=== PATIENT | male | born 1945 | race Caucasian/White ===

== ENCOUNTER 2022-01-23 06:12 | Observation (INO) ==
--- NOTE | 2021-12-20 09:57 | PAT Medication Instructions ---
Medication Instructions Date of Service December 20, 2021 Home Medications Medication Instructions Recorded celecoxib 200 mg capsule (Celebrex) 200 mg PO BID #60 caps 10/25/21 Wheeled Walker #1 ea 11/30/21 aspirin 81 mg tablet 81 mg PO QAM celecoxib 200 mg capsule (Celebrex) 200 mg PO BID Wheeled Walker #1 ea 11/30/21 [Rx] Zn-pyg htau-zvtehe-tdd palmet capsule 1 cap PO QAM amlodipine 5 mg tablet 5 mg PO QAM ascorbic acid (vitamin C) 500 mg tablet,extended release (Vitamin C ER) 500 mg PO QAM atorvastatin 40 mg tablet 40 mg PO HS coenzyme Q10 100 mg capsule (Co Q-10) 100 mg PO QAM magnesium 100 mg tablet 300 mg PO BID metoprolol succinate 25 mg tablet,extended release 24 hr 25 mg PO QAM multivitamin 1 tab PO BID ASK your surgeon for instructions celecoxib 200 mg capsule (Celebrex) 200 mg PO BID STOP taking 2 weeks before surgery Zn-pyg lryq-gwnaez-ydg palmet capsule 1 cap PO QAM coenzyme Q10 100 mg capsule (Co Q-10) 100 mg PO QAM DO NOT take the morning of surgery ascorbic acid (vitamin C) 500 mg tablet,extended release (Vitamin C ER) 500 mg PO QAM magnesium 100 mg tablet 300 mg PO BID multivitamin 1 tab PO BID Take morning of surgery With a small sip of water, OTHERWISE NOTHING TO EAT OR DRINK AFTER MIDNIGHT: aspirin 81 mg tablet 81 mg PO QAM (unless directed otherwise by surgeon) amlodipine 5 mg tablet 5 mg PO QAM metoprolol succinate 25 mg tablet,extended release 24 hr 25 mg PO QAM Take evening before surgery atorvastatin 40 mg tablet 40 mg PO HS magnesium 100 mg tablet 300 mg PO BID multivitamin 1 tab PO BID Other Notes If you have any questions please call us at [phone] or [phone] or [phone] or [phone]
--- NOTE | 2021-12-27 13:09 | Anesthesiology Consultation ---
Date of Service December 27, 2021 Assessment & Plan (1) Encounter for pre-operative examination: - cardiology pre-op evaluation 12/28/21 [place]: "...preoperative evaluation and for management of his hypertension, hypercholesterolemia, and his coronary artery disease (CABG x4, August 2011, [place]). Since last visit, the patient has done well...to undergo left hip replacement surgery on January 23. He is active on a daily basis caring for his home and property. He does ambulate with the assistance of a cane...is able to walk 1/2 mi and climb 2 flights of stairs without difficulty...denies exertional angina pectoris and limiting dyspnea...stable from a cardiovascular standpoint...excellent control of his blood pressure and cholesterol values...coronary artery disease remains quiescent his current medical regimen...acceptable cardiac risk for hip replacement surgery without further testing..." - CABG x 4. - Outpatient joint assessment: Patient is currently scheduled for inpatient pathway. If re-evaluated pending system levels during current pandemic/surgeon requests outpatient pathway, patient is not recommended candidate for outpatient joint program from anesthesia standpoint. - COVID screening: Per assessment on 12/27/2021: Travel screen-returned from [facility] 12/16/21, no known COVID-19 positive contacts or current COVID-19 related symptoms in past 2 weeks. Pt vaccinated. To surgeon's discretion if preop COVID testing needed. Chart Review Chart Review: Acceptable Risk for Surgery and Patient seen in Pre Admission Testing Teaching & Discussion Pre-Anesthesia Teaching/Discussion Notes: Instructed NPO after midnight before surgery, except medications with 15 cc of water. Medication instructions provided according to the PAT guidelines. History Surgery Operation Date: 01/23/22 08:50 Proposed Procedures p Left Anterior Total Hip Arthroplasty - Lei Marcus DO Height/Weight Height: 5 ft 7 in Weight: 90.6 kg Allergies Allergy/AdvReac Type Severity Reaction Status Date / Time No Known Allergies Allergy Verified 12/20/21 08:48 Medications Home Medications Medication Instructions Recorded Confirmed Last Taken aspirin 81 mg tablet 81 mg PO QAM 12/09/18 12/20/21 Unknown celecoxib 200 mg capsule (Celebrex) 200 mg PO BID #60 caps 10/25/21 12/20/21 Unknown Wheeled Walker #1 ea 11/30/21 Unknown Zn-pyg rmfu-jtwozr-koh palmet 1 cap PO QAM 12/20/21 12/20/21 Unknown capsule ascorbic acid (vitamin C) 500 mg 500 mg PO QAM 12/20/21 12/20/21 Unknown tablet,extended release (Vitamin C ER) coenzyme Q10 100 mg capsule (Co 100 mg PO QAM 12/20/21 12/20/21 Unknown Q-10) magnesium 100 mg tablet 300 mg PO BID 12/20/21 12/20/21 Unknown multivitamin 1 tab PO BID 12/20/21 12/20/21 Unknown amlodipine 5 mg tablet 5 mg PO QAM #90 tabs 12/28/21 12/28/21 Unknown atorvastatin 40 mg tablet 40 mg PO HS #90 tabs 12/28/21 12/28/21 Unknown metoprolol succinate 25 mg 25 mg PO QAM #90 tabs 12/28/21 12/28/21 Unknown tablet,extended release 24 hr Past Medical History Medical History (Updated 12/28/21 @ 10:18 by Adonay Blanca MD) Dyslipidemia History of COVID-19 09/2021, home test, not hosp; "flu symptoms">put on paxlovid, resolved. Hx of coronary artery disease s/p CABG x 4 Hypertension controlled, stable per pt Myocardial Infarction ~10 years ago in [place], s/p CABG x 4 Sleep-disordered breathing snoring and witnessed apneas per , no sleep studies Patient denies h/o stroke, seizures, heart failure, DM, blood clots or blood transfusions. Past Family History Family History Other Coronary heart disease Denies family history of Ovarian cancer Prostate cancer Myocardial infarction Breast cancer Colorectal cancer Past Surgical History Surgical History (Updated 12/29/21 @ 08:28 by Tori Almeida PA-C) History of cardiac cath ~10 years ago, [place]>taken for CABG x4; f/u Dr. Blanca, [place] History of quadruple bypass Hx of colonoscopy Hx of nasal septoplasty S/P wisdom tooth extraction Past Anesthesia History No Hx of Anesthesia Complications and No Family Hx of Anesthesia Complications History of PONV No Hx of PONV and No Hx of Motion Sickness Social History Smoking Status: Never smoker Do You Dip or Chew Tobacco: No Hx Alcohol Use: Yes Alcohol type: wine alcohol intake frequency: 0-2 drinks per day Hx Substance Use: No substance use type: does not use Review of Systems Snoring and witnessed apneas. Denies sleep studies. Patient denies chest pain, shortness of breath, dyspnea on exertion, reflux, fever, chills, cough, wheezing, or palpitations. Physical Exam Vital Signs Vitals BP 114/54 P 57 TEMP 98.2 SP02 96% on RA RESP 17 Physical Full cervical extension range of motion without pain TMD 3.5 finger breadths Mallampati Score 3 Dentition: intact, pt unsure of caps/crowns; denies loose or chipped teeth, implants or bridges Lungs: normal respiratory effort. Clear throughout to auscultation, no adventitious breath sounds Cardiac: regular rate and rhythm, no murmurs noted Carotid arteries: negative bruit bilat Lab Results Anesthesia Preop Results Results Anesthesia Widget: WBC 8.10 K/ul (4.8-10.8) 12/27/21 Hgb 12.8 g/dl (14.0-18.0) L 12/27/21 Hct 37.9 % (40.1-51.0) L 12/27/21 Plt 211 K/uL (130-400) 12/27/21 Na 139 mmol/L (136-145) 12/27/21 K 4.2 mmol/L (3.5-5.1) 12/27/21 Cl 108 mmol/L (98-107) H 12/27/21 CO2 25 mmol/L (21-32) 12/27/21 BUN 23 mg/dl (6-23) 12/27/21 Creat 1.03 mg/dl (0.6-1.4) 12/27/21 Glucose Level 91 mg/dl (70-99(Fasting)) 12/27/21 PT 10.8 Seconds (9.0-12.0) 12/27/21 PTT 26.5 Seconds (21.0-31.0) 12/27/21 INR 1.0 (0.9-1.1) 12/27/21 Blood Type AB Positive 12/27/21 Antibody Screen NEGATIVE 12/27/21 Testing Electrocardiogram Date: 12/27/21 Sinus bradycardia, rate 56 bpm Chest X-Ray Date: 12/27/21 PA and lateral chest radiographs are obtained. No prior studies are available for comparison at the time of dictation. The patient is status post midline sternotomy. The cardiomediastinal silhouette is unremarkable noting atherosclerotic calcification of the thoracic aorta. Nonspecific interstitial thickening is likely chronic. The lungs and pleural spaces are clear. There is no pneumothorax. The skeletal structures are osteopenic. The bony thorax appears intact. IMPRESSION: No active disease in the chest.
--- NOTE | 2022-01-17 09:07 | History & Physical Report ---
Date of Service January 17, 2022 Assessment & Plan (1) Primary osteoarthritis of left hip: We will proceed with a left anterior total of arthroplasty. Postoperatively he will be started on aspirin for DVT prophylaxis and kept overnight for postoperative medical management. He plans to use energy physical therapy upon discharge. History of Present Illness Chief Complaint: Chronic worsening osteoarthritis of the left hip. Primary Care Provider: Alexis Hutson DO Ambrosio is a pleasant 76-year-old male who is been dealing with chronic increasing left hip and groin pain. X-rays and clinical examination have been diagnostic for advanced osteoarthritis of the left hip. After failing conservative treatment, he has elected proceed with a left anterior total of arthroplasty.. Allergies Allergy/AdvReac Type Severity Reaction Status Date / Time No Known Allergies Allergy Verified 12/20/21 08:48 Home Medications Medication Instructions Recorded Confirmed Type Wheeled Walker #1 ea 11/30/21 Rx ascorbic acid (vitamin C) 500 mg 500 mg PO QAM 12/20/21 01/15/22 History tablet,extended release (Vitamin C ER) coenzyme Q10 100 mg capsule (Co 100 mg PO QAM 12/20/21 01/15/22 History Q-10) multivitamin 1 tab PO BID 12/20/21 01/15/22 History amlodipine 5 mg tablet 5 mg PO QAM #90 tabs 12/28/21 01/15/22 Rx atorvastatin 40 mg tablet 40 mg PO HS #90 tabs 12/28/21 01/15/22 Rx metoprolol succinate 25 mg 25 mg PO QAM #90 tabs 12/28/21 01/15/22 Rx tablet,extended release 24 hr celecoxib 200 mg capsule (Celebrex) 200 mg PO BID #60 caps 01/02/22 01/15/22 Rx aspirin 81 mg tablet,delayed 81 mg PO DAILY 01/15/22 01/15/22 History release magnesium 250 mg tablet 250 mg PO DAILY 01/15/22 01/15/22 History saw palmetto 450 mg capsule 450 mg PO QAM 01/15/22 01/15/22 History Past Med/Surg History Medical History Dyslipidemia History of COVID-19 09/2021, home test, not hosp; "flu symptoms">put on paxlovid, resolved. Hx of coronary artery disease s/p CABG x 4 Hypertension controlled, stable per pt Myocardial Infarction ~10 years ago in [place], s/p CABG x 4 Sleep-disordered breathing snoring and witnessed apneas per , no sleep studies Surgical History History of cardiac cath ~10 years ago, [place]>taken for CABG x4; f/u Dr. Blanca, [place] History of quadruple bypass Hx of colonoscopy Hx of nasal septoplasty S/P wisdom tooth extraction Family History Other Coronary heart disease Denies family history of Ovarian cancer Prostate cancer Myocardial infarction Breast cancer Colorectal cancer Social History Smoking Status: Never smoker Second Hand Exposure: No; Hx Alcohol Use: Yes Alcohol type: wine Alcohol Intake Frequency: 4 or More x per/Week Alcohol Intake Frequency Comment: At dinner Hx Substance Use: No Preferred Language: Polish Communication Ability: Effective Visual Impairment: No Limitations Hearing Ability: Normal Tool And Die Maker Required: No Beliefs That Will Affect Care: None marital status: Current Living Situation: Spouse current occupational status: retired Feels Safe at Home: Yes Childhood Exposure to Second-Hand Smoke: No Dental Care, Regularly: Yes Physical Activity Frequency: Daily Seatbelt Use: always Sunscreen Use: Yes Assistive Devices: Glasses Review of Systems All systems reviewed & are unremarkable except as noted in HPI & below. Physical Exam On physical examination of the left hip, he walks with a slight antalgic gait. I can flex him to 80 degrees. He has 20 degrees of external rotation 10 degrees of internal rotation. He has pain at end ranges of motion.. Constitutional WD/WN, vitals as above Eyes PERRL, conjunctivae normal, anicteric sclerae ENMT external ear and nose normal, oropharynx normal Neck trachea midline, no thyromegaly Respiratory normal respiratory effort, lungs clear to auscultation Cardiovascular RRR, no murmur, no edema Gastrointestinal (Abdomen) normal bowel sounds, soft, nontender, no hepatosplenomegaly Skin no rashes, warm and dry Psychiatric A+Ox3, euthymic affect Results & Data Results & Data Laboratory Results . Diagnostic Findings X-rays of the left hip and pelvis show advanced osteoarthritis with joint space narrowing, osteophyte formation, and [id number]-[id number] tubulation. PG Care Time/CCT Total # of Minutes Spent Total Time Spent with Patient: Total time spent is greater than 50% in coordination of care (as documented) at patient's floor/unit and/or counseling patient: Coding Level of Care Code None Diagnoses Primary osteoarthritis of left hip M16.12
[~2022-01-23 06:12] MED LIST: ACETAMINOPHEN 500 MG TAB PO SCH; FAMOTIDINE 20 MG TAB PO SCH; GABAPENTIN 300 MG CAP PO SCH; LR 500ML BOLUS, THEN 15ML/HR IV SCH; LR 60ML/HR IV SCH; ORTHO JOINT MIX INFIL SCH; TRANEXAMIC ACID 1,000 MG **IV Intra-op IV SCH; TRANEXAMIC ACID 1,000 MG **IV Pre-op IV SCH; ceFAZolin 2000MG 2,000 MG/15 ML SYR IV SCH; dexAMETHasone 4 MG TAB PO SCH
[2022-01-23] MEDS ORDERED: BUPIVACAINE 0.5 % 5 MG/1 ML PF 10ML VIAL ONE (06:31)
[2022-01-23] MEDS ORDERED: ONDANSETRON INJ 2 MG/ML 2 ML VIAL IV PRN ×2 (06:33→10:29)
[2022-01-23] MEDS ORDERED: ATROPINE SULFATE 0.1 MG/ML 10ML SYR IV PRN (06:33)
[2022-01-23] MEDS ORDERED: ePHEDrine sulfate 50 MG/ML AMP IV PRN (06:33)
[2022-01-23] MEDS ORDERED: fentaNYL citrate 100 MCG/2 ML VIAL IV PRN (06:33)
[2022-01-23] MEDS ORDERED: MIDAZOLAM HCL 1 MG/ML 2ML VIAL ONE (06:46)
[2022-01-23] MEDS ORDERED: fentaNYL citrate 100 MCG/2 ML VIAL ONE (06:46)
--- NOTE | 2022-01-23 06:49 | History & Physical Bridge Note ---
Date of Service January 23, 2022 History & Physical Bridge Note I have examined the patient, reviewed the History & Physical and in the interval since the performance of the History & Physical I have noted the following changes of clinical significance: no changes noted
[2022-01-23] MEDS ORDERED: ORTHO JOINT ANESTHETIC ONE (07:19)
[2022-01-23] MEDS ORDERED: PROPOFOL IV EMULSION 10 MG/ML 20 ML VIAL IV ONE (08:43)
[2022-01-23] MEDS ORDERED: ePHEDrine sulfate 50 MG/ML SYR ONE (08:43)
[2022-01-23] MEDS ORDERED: ONDANSETRON INJ 2 MG/ML 2 ML VIAL ONE (08:44)
--- NOTE | 2022-01-23 09:10 | Operative Report ---
PG Post Operative Report Pre & Post Diagnosis Operation Date: 01/23/22 08:40 Pre-Op Diagnosis: Left Hip Primary Osteoarthritis Post-Op Diagnosis: Left Hip Primary Osteoarthritis I identified the patient and participated in the time-out.: Yes Procedure Operation Date: 01/23/22 08:40 Actual Procedures p Left Anterior Total Hip Arthroplasty--Uncemented(Left) - Lie Marcus DO Surgeon Lei Marcus DO Corporate Travel Coordinator Lei Triplett PA-C Estimated Blood Loss 200 Findings Consistent with Post-Op Diagnosis Specimens Left femoral head Description of Procedure Implants used I used a ZimmerBiomet total hip arthroplasty system with a size 4 standard offset Avenir Complete stem, a 54 mm G7 cup with a 25mm screw, an E1 polyeth ylene liner, a 40 mm ceramic head with a 0 neck. Ambrosio arrived at the hospital for the above procedure. He was seen in the preoperative holding area and the operative extremity was identified and signed. He was given a spinal anesthetic, a preoperative antibiotic, and TXA. He was then taken back to the operating room and laid on the table in the supine position. He was given basic sedation. The operative leg was secured to a Puristst leg positioner. The hip was then prepped and draped in sterile fashion. A timeout was done and the patient and the operative extremity was properly identified. An anterior approach was used. Dissection was taken down through the fascia and the tensor muscle belly was retracted laterally and the rectus was retracted medially. The circumflex vessels were identified and ligated. The capsule was then incised and tagged for later repair. The femoral neck was then cut and the femoral head was removed. The acetabulum was exposed. Time was spent doing a complete circumferential labral release. Sequential reaming of the acetabulum up to a size 53 reamer was done. Final reamings were done under fluoroscopy to ensure appropriate version. A Biomet 54 mm G7 cup was then impacted into place. A single 25 mm screw was placed. The E1 polyethylene liner was then snapped into place. Surrounding soft tissues were then injected with 100 cc of an orth opedic pain control cocktail. The proximal femur was then exposed. Sequential broaching up to a size 4 broach was done. Off that broach a size 40 head with a 0 neck was trialed. The hip was reduced and fluoroscopic images showed anatomic alignment of the implants in acceptable length. The broach was removed. The final size 4 standard offset Avenir Complete stem was then impacted into place. A ceramic 40 mm head with a 0 neck was then impacted onto the stem and the hip was reduced. Final fluoroscopic images showed anatomic alignment of the hip. The capsule was then closed with #1 Vicryl suture. A dilute betadyne lavage was then done for 3 minutes. The joint was then irrigated with normal saline solution. The fascia was closed with #1 PDS suture. Skin was closed with 2-0 Vicryl, yaquelin, and a Silverlon dressing. He was then transferred to a hospital bed and taken to the post anesthesia care unit in stable condition. He tolerated the procedure well. Lei Triplett PA-C, was present for the entire procedure. He was critical for patient positioning, prepping, draping, retraction exposure, wound closure and application of sterile dressing. I attest to the content of the Intraoperative Record and any orders documented therein. Any exceptions are noted below.
--- NOTE | 2022-01-23 09:54 | Fluoroscopy Report ---
FL hip LT 1V CLINICAL HISTORY: LT ANTERIOR TOTAL COMPARISON STUDY: Left hip radiographs July 26, 2021. FLUOROSCOPY TIME: 11 seconds. FLUOROSCOPIC IMAGES: 2 FINDINGS: Fluoroscopy was provided during total left hip arthroplasty. Acetabular screw is noted. The re are no unexpected radiopaque foreign bodies. No fracture is identified by fluoroscopy. IMPRESSION: Fluoroscopy provided during total left hip arthroplasty. ACT 112: Negative or not required by law. Electronically signed by: Grupo Solares M.D. 01/23/2022 9:53 AM
--- NOTE | 2022-01-23 09:58 | XRay Report ---
SINGLE VIEW PELVIS; SINGLE VIEW LEFT HIP CLINICAL HISTORY: Postoperative examination. FINDINGS: An AP portable view of the hips and pelvis with a crosstable lateral portable view of the l eft hip are obtained. A bipolar left hip arthroplasty is in near-anatomic alignment. A single cortic al lag screw transfixes the acetabular cup. No acute fracture is identified. There are expected posto perative changes overlying the left hip including skin clips, subcutaneous gas, and soft tissue swell ing. Advanced arthritic changes seen in the right hip. IMPRESSION: Expected postoperative findings status post left hip arthroplasty. No acute fracture is s een. ACT 112: Negative or not required by law. Electronically signed by: Grzegorz Rodriguez M.D. 01/23/2022 9:56 AM
[2022-01-23] MEDS ORDERED: METOCLOPRAMIDE HCL INJ 5 MG/ML 2 ML VIAL IV PRN (10:29)
[2022-01-23] MEDS ORDERED: HYDROmorphone INJ 0.5 MG/0.5 ML SYR IV PRN (10:29)
[2022-01-23] MEDS ORDERED: NALOXONE HCL 0.4 MG/1 ML VIAL/CARP IV PRN (10:29)
[2022-01-23] MEDS ORDERED: SODIUM CHLORIDE 0.9% 1000ML 1,000 ML IV SCH (10:29)
[2022-01-23] MEDS ORDERED: MAGNESIUM HYDROXIDE SUSP 30 ML UDC PO PRN (10:29)
[2022-01-23] MEDS ORDERED: bisacodyL 10 MG SUPP PR PRN (10:29)
[2022-01-23] MEDS ORDERED: oxyCODONE HCL IR 5 MG TAB (IMMEDIATE RELEASE) PO PRN (10:29)
[2022-01-23] MEDS: KETOROLAC TROMETHAMINE 15 MG/ML VIAL IV SCH ×3 (10:50→22:23)
--- NOTE | 2022-01-23 12:17 | Anesthesiology Progress Note ---
Date of Service January 23, 2022 Anesthesia Post Procedure Vital Signs Vital Signs: Temp Pulse Pulse Resp BP Pulse Ox O2 Del Method 01/23/22 11:28 36.4 C L 66 16 115/67 98 Nasal Cannula 01/23/22 11:00 36.5 C 62 16 119/75 94 Nasal Cannula 01/23/22 10:30 36.4 C L 63 16 111/68 96 Nasal Cannula 01/23/22 10:00 36.6 C 66 16 104/52 L 97 Oxymask 01/23/22 09:45 70 16 106/55 L 97 Oxymask 01/23/22 09:35 71 16 119/58 L 97 Oxymask 01/23/22 09:27 36.4 C L 74 16 106/58 L 96 Oxymask 01/23/22 06:45 36.9 C 75 18 135/67 96 Room Air O2 Flow Rate 01/23/22 11:28 1 01/23/22 11:00 1 01/23/22 10:30 2 01/23/22 10:00 3 01/23/22 09:45 3 01/23/22 09:35 5 01/23/22 09:27 5 01/23/22 06:45 Pain Intensity Bilateral Hip: Pain Intensity: 8 Transfer of Care Handoff Completed per policy Notes Mental Status: alert / awake / arousable and participated in evaluation Patient Amnestic to Procedure: Yes Nausea / Vomiting: adequately controlled Pain: adequately controlled Airway Patency, RR, SpO2: stable & adequate BP & HR: stable & adequate Hydration State: stable & adequate Neuraxial Anesthesia: was administered and sensory block is resolving Anesthetic Complications: no major complications apparent and Pt Satisfied with anesthetic care
[2022-01-23] MEDS: ACETAMINOPHEN 500 MG TAB PO SCH ×2 (14:52→22:24)
[2022-01-23] MEDS: ceFAZolin 2000MG 2,000 MG/15 ML SYR IV SCH ×2 (14:52→22:25)
[2022-01-23] MEDS: ASPIRIN 81 MG ECTAB PO SCH (20:21)
[2022-01-23] MEDS: DOCUSATE SODIUM 100 MG CAP PO SCH (20:22)
[2022-01-23] MEDS ORDERED: ATORVASTATIN 40 MG TAB PO SCH (21:00)
[2022-01-23] MEDS ORDERED: SENNA 8.6 MG TAB PO SCH (21:00)
[2022-01-24] MEDS: KETOROLAC TROMETHAMINE 15 MG/ML VIAL IV SCH ×2 (05:03→11:05)
[2022-01-24] MEDS: ACETAMINOPHEN 500 MG TAB PO SCH (05:04)
--- NOTE | 2022-01-24 07:01 | Orthopedic Progress Note ---
Date of Service January 24, 2022 Assessment & Plan (1) Status post left hip replacement: Overall he is doing very well. He is not having any pain in the left hip. He will be seen by physical therapy today for ambulation and range of motion exercises. He is on aspirin for DVT prophylaxis. He can be discharged home later today. He will follow-up with orthopedics in 2 weeks. Subjective Ambrosio was seen and examined at bedside this morning. Overall is doing very well. Is not having much pain in the left hip. He has been up to the bedside commode. He has no complaints.. Review of Systems All systems reviewed & are unremarkable except as noted in HPI & below. Physical Exam On physical examination of the left hip, the dressing is clean and dry. His leg lengths are equal. He has active dorsiflexion plantarflexion of his left ankle.. Results & Data Results & Data Laboratory Results . Diagnostic Findings Postoperative x-rays of the left hip show the prosthesis to be in anatomic alignment without any evidence of fracture, desiccation, or loosening. PG Care Time/CCT Total # of Minutes Spent Total Time Spent with Patient: Total time spent is greater than 50% in coordination of care (as documented) at patient's floor/unit and/or counseling patient: Coding Level of Care Code 00750 Post Operative Follow-Up Diagnoses Status post left hip replacement Z96.642
--- NOTE | 2022-01-24 07:02 | Discharge Summary ---
Date of Service January 24, 2022 Admission HPI (Per Admitting) Ambrosio is a pleasant 76-year-old male who is been dealing with chronic increasing left hip and groin pain. X-rays and clinical examination have been diagnostic for advanced osteoarthritis of the left hip. After failing conservative treatment, he has elected proceed with a left anterior total of arthroplasty.. Admission Exam (Per Admitting) On physical examination of the left hip, he walks with a slight antalgic gait. I can flex him to 80 degrees. He has 20 degrees of external rotation 10 degrees of internal rotation. He has pain at end ranges of motion.. Principal Diagnosis Same as "Discharge Diagnosis" noted below under Discharge Instructions. Discharge Exam On physical examination of the left hip, the dressing is clean and dry. His leg lengths are equal. He has active dorsiflexion plantarflexion of his left ankle.. Discharge Data Procedures Performed Operation Date: 01/23/22 08:40 Actual Procedures p Left Anterior Total Hip Arthroplasty--Uncemented(Left) - Lei Marcus DO Ordered Studies 01/23/22 10:20 FL hip LT 1V Routine Hospital Course (1) Status post left hip replacement: On January 23, 2022 Ambrosio arrived at [facility] and underwent a left hip replacement without complication. He had a spinal anesthetic. Postope ratively he was started on aspirin for DVT prophylaxis and transferred to the general orthopedic floors. His hospital course was uneventful. On postop day #1, his vital signs were stable and his pain was well controlled. He was able to participate well with physical therapy doing ambulation and range of motion exercises. He was then discharged home. He will follow-up with orthopedics in 2 weeks. PG Care Time/CCT Total # of Minutes Spent Total Time Spent with Patient: Total time spent is greater than 50% in coordination of care (as documented) at patient's floor/unit and/or counseling patient: Discharge Plan Discharge Items Patient Disposition: Home - Home Health Services Reason For Visit: Degenerative Joint Disease Left Hip Discharge Diagnosis: Left hip replacement Activity: As commented below Non-emergency contact: Surgeon Call non-emergency contact if: your wound has increased redness and your wound has increased drainage Follow-up/Referrals: Alexis Hutson DO [Primary Care Provider] - Diet: Regular Addtl Attending Provider Instructions: Activity and Therapy Recommendations: * If you are using [facility] then therapy will be provided at your home until they feel you have accomplished all of your goals. * If you are using [facility] then Physical Therapy will be provided until they feel you are ready to start Outpatient Physical Therapy. * If you are not using home therapy then Outpatient Physical Therapy should start about 3-5 days from your day of surgery. Therapy will last about 6-10 weeks * You were shown a series of exercises in the hospital. Do these exercises three times each day including the exercises you were shown in physical therapy. * Get up and walk several times each day.~ For the first four weeks, try not to stand or walk for more than one hour at a time. If you do stand or walk for more than one hour, you will not hurt anything, but your leg will likely swell.~~ * As you feel comfortable, you may change from the walker or crutches to a cane and~then to independent walking. Medications: * Narcotic You will likely be sent home from the hospital with a prescription for the narcotic pain medication that worked best throughout your stay. * Aspirin Most patients will be required to take Aspirin 81mg twice a day for 6 weeks after surgery. This is obtained [id number] and a prescription is not necessary. * Other medications may be prescribed for specific circumstances. If you have any questions, please call the office at . * Resume previous home medications unless otherwise instructed TEDs/Elastic Stockings: The white elastic stockings help limit swelling and prevent blood clots from forming in your legs. The more you wear them, the more they work. Wear them for six weeks. Dressing Care: Leave the Silverlon dressing in place for 7 days. After 7 days you may remove the dressing. If the incision is not draining then you may leave the yaquelin open to air. If there is a little bit of drainage or if the yaquelin are getting stuck on your clothing then cover the incision with a dry dressing. The yaquelin will be removed at your 2 week follow-up appointment. Showering: You may shower with the Silverlon dressing in place. Do not let the shower spray hit the dressing directly. Pat the Silverlon dressing dry. If the dressing becomes wet underneath, then simply remove the dressing. Keep the incision dry until you are 7 days out from the day of surgery. After 7 days you may remove the Silverlon dressing and shower with the yaquelin exposed. Let soapy water run over the yaquelin and pat them dry. Do not scrub or soak the incision. Things To Watch For: * Drainage from the incision site that occurs more than one week after your surgery. * Increased redness at the incision site. * Fever above 102 degrees Fahrenheit. * Unusual chest pain or shortness of breath. * Call [facility] at with any of the above problems Follow-Up Visit: Follow-up with Dr. Marcus's PA (Lei Triplett) 2-3 weeks after your day of surgery. He will remove your yaquelin and answer any questions. If you have any additional questions or concerns, Dr Marcus is usually in the office at the same time and will be available An appointment was probably scheduled when you signed-up for surgery in the office. If you have any questions call Office Instructions: More detailed instructions as well as Frequently Asked Questions were provided in a folder by our office when you signed-up for surgery. Please review these instructions when you get home. If you have any further questions or concerns, please feel free to call the office at [phone] Pending Studies at Discharge: No Stand-Alone Forms: My [facility] Medications and DC Order Prescriptions: New oxycodone-acetaminophen 5-325 mg tablet 1 tab PO Q6H PRN (Reason: pain) Qty: 30 0RF Continued (DME) Wheeled Walker Misc See Rx Instructions .MEDSUPPLY Qty: 1 0RF Rx Instructions: As directed amlodipine 5 mg tablet 5 mg PO QAM Qty: 90 3RF atorvastatin 40 mg tablet 40 mg PO HS Qty: 90 3RF metoprolol succinate 25 mg tablet extended release 24 hr 25 mg PO QAM Qty: 90 3RF magnesium 250 mg Tablet 250 mg PO DAILY multivitamin Tablet 1 tab PO BID ascorbic acid (vitamin C) [Vitamin C] 500 mg Tablet Extended Release 500 mg PO QAM Changed aspirin 81 mg Tablet,Delayed Release (Dr/Ec) 81 mg PO BID 42 Days Qty: 0 0RF Discharge Orders: Discharge Order (Routine); Ordered 01/24/22 Ordered By: Lei Marcus Admission Data Admit Date/Time: 01/23/22 09:26 Attending Provider: Lei Marcus Admit Provider: Lei Marcus Primary Care Provider: Alexis Hutson
[2022-01-24] MEDS ORDERED: dexAMETHasone 4 MG TAB PO SCH (08:00)
[2022-01-24] MEDS: ASPIRIN 81 MG ECTAB PO SCH (08:47)
[2022-01-24] MEDS: DOCUSATE SODIUM 100 MG CAP PO SCH (08:47)
[2022-01-24] MEDS ORDERED: METOPROLOL SUCC 25MG EXT REL TAB PO SCH (09:00)
[2022-01-24] MEDS ORDERED: amLODIPine BESYLATE 5 MG TAB PO SCH (09:00)
[2022-01-24] MEDS ORDERED: MAGNESIUM OXIDE 400 MG TAB PO SCH (09:00)
[2022-01-24] MEDS ORDERED: MULTIVITAMIN TAB PO SCH (09:00)
== END 2022-01-24 12:30 | disposition home health service (06) ==
LOC: 3W 06:12 → ASU 06:12
DX: M87.852 Other osteonecrosis, left femur; Z79.899 Other long term (current) drug therapy; Z95.1 Presence of aortocoronary bypass graft; M16.12 Unilateral primary osteoarthritis, left hip; I25.2 Old myocardial infarction; Z86.16 Personal history of COVID-19; M65.9 Synovitis and tenosynovitis, unspecified; Z79.82 Long term (current) use of aspirin

== ENCOUNTER 2022-06-05 10:12 | Observation (INO) ==
--- NOTE | 2022-05-30 11:37 | Anesthesiology Consultation ---
Date of Service May 30, 2022 Assessment & Plan (1) Encounter for pre-operative examination: Plan -cardiology pre-op evaluation 12/28/21 [place]: "...preoperative evaluation and for management of his hypertension, hypercholesterolemia, and his coronary artery di sease (CABG x4, August 2011, [place]). Since last visit, the patient has done well...to undergo left hip replacement surgery on January 23. He is active on a daily basis caring for his home and property. He does ambulate with the assistance of a cane...is able to walk 1/2 mi and climb 2 flights of stairs without difficulty...denies exertional angina pectoris and limiting dyspnea...stable from a cardiovascular standpoint...excellent control of his blood pressure and cholesterol values...coronary artery disease remains quiescent his current medical regimen...acceptable cardiac risk for hip replacement surgery without further testing..." - COVID screening: Per safety instruction police officer on 05/30/2022: Travel screen negative, no known COVID-19 positive contacts or current COVID-19 related symptoms in past 2 weeks. To surgeon's discretion if preop COVID testing is needed. Chart Review Chart Review: Acceptable Risk for Surgery and Patient NOT seen in Pre Admission Testing History Surgery Operation Date: 06/05/22 09:20 Proposed Procedures p Right Anterior Total Hip Arthroplasty - Lei Marcus DO Height/Weight Height: 5 ft 6 in Weight: 90.265 kg Allergies Allergy/AdvReac Type Severity Reaction Status Date / Time No Known Allergies Allergy Verified 05/30/22 10:45 Medications Home Medications Medication Instructions Recorded Confirmed Last Taken Wheeled Walker #1 ea 11/30/21 01/23/22 Unknown ascorbic acid (vitamin C) 500 mg 500 mg PO QAM 12/20/21 05/30/22 01/21/22 tablet,extended release (Vitamin C ER) multivitamin 1 tab PO BID 12/20/21 05/30/22 01/23/22 05:45 amlodipine 5 mg tablet 5 mg PO QAM #90 tabs 12/28/21 05/30/22 01/22/22 05:45 atorvastatin 40 mg tablet 40 mg PO HS #90 tabs 12/28/21 05/30/22 01/22/22 22:00 metoprolol succinate 25 mg 25 mg PO QAM #90 tabs 12/28/21 05/30/22 01/23/22 05:45 tablet,extended release 24 hr magnesium 250 mg tablet 250 mg PO QAM 01/15/22 05/30/22 01/23/22 05:45 aspirin 81 mg tablet,delayed 81 mg PO BID 42 days #0 tabs 01/24/22 05/30/22 01/23/22 05:45 release oxycodone-acetaminophen 5 mg-325 1 tab PO Q6H PRN pain #30 tabs 01/24/22 05/30/22 Unknown mg tablet amoxicillin 500 mg tablet 2,000 mg PO ONCE PRN prophylaxis 03/08/22 05/30/22 Unknown #4 tabs Past Medical History Medical History Dyslipidemia History of COVID-19 09/2021, home test, not hosp; "flu symptoms">put on paxlovid, resolved. Hx of coronary artery disease s/p CABG x 4 Hypertension controlled, stable per pt Myocardial Infarction ~10 years ago in [place], s/p CABG x 4 Sleep-disordered breathing snoring and witnessed apneas per , no sleep studies Past Family History Family History Other Coronary heart disease Denies family history of Ovarian cancer Prostate cancer Myocardial infarction Breast cancer Colorectal cancer Past Surgical History Surgical History (Updated 05/30/22 @ 11:36 by Tori Almeida PA-C) History of cardiac cath ~10 years ago, [place]>taken for CABG x4; f/u [facility] History of quadruple bypass Hx of colonoscopy Hx of nasal septoplasty S/P triple vessel bypass ~2008, [place],; f/u [facility] S/P wisdom tooth extraction Status post left hip replacement (~01/2022) 01/2022 Dr Marcus SAB L4-L5 2 attempts. Social History Smoking Status: Never smoker Do You Dip or Chew Tobacco: No Hx Alcohol Use: Yes Alcohol type: wine alcohol intake frequency: 0-2 drinks per day Hx Substance Use: No substance use type: does not use Lab Results Anesthesia Preop Results Results Anesthesia Widget: WBC 6.97 K/ul (4.8-10.8) 05/10/22 Hgb 12.6 g/dl (14.0-18.0) L 05/10/22 Hct 36.5 % (40.1-51.0) L 05/10/22 Plt 288 K/uL (130-400) 05/10/22 Na 141 mmol/L (136-145) 05/10/22 K 4.2 mmol/L (3.5-5.1) 05/10/22 Cl 108 mmol/L (98-107) H 05/10/22 CO2 27 mmol/L (21-32) 05/10/22 BUN 23 mg/dl (6-23) 05/10/22 Creat 1.12 mg/dl (0.6-1.4) 05/10/22 Glucose Level 92 mg/dl (70-99(Fasting)) 05/10/22 PT 10.9 Seconds (9.0-12.0) 05/10/22 PTT 27.5 Seconds (21.0-31.0) 05/10/22 INR 1.0 (0.9-1.1) 05/10/22 Blood Type AB Positive 05/10/22 Antibody Screen NEGATIVE 05/10/22 Testing Electrocardiogram Date: 01/15/22 NSR, rate 64 bpm Chest X-Ray Date: 12/27/21 No prior studies are available for comparison at the time of dictation. The patient is status post midline sternotomy. The cardiomediastinal silhouette is unremarkable noting atherosclerotic calcification of the thoracic aorta. Nonspecific interstitial thickening is likely chronic. The lungs and pleural spaces are clear. There is no pneumothorax. The skeletal structures are osteopenic. The bony thorax appears intact. IMPRESSION: No active disease in the chest.
--- NOTE | 2022-06-05 06:33 | History & Physical Report ---
Date of Service June 05, 2022 Assessment & Plan (1) Osteoarthritis of right hip: We will proceed with a right anterior total of arthroplasty. Postoperatively he will be started on aspirin for DVT prophylaxis and kept overnight in the hospital for postoperative medical management. [facility] plans [facility] upon discharge. History of Present Illness Chief Complaint: Osteoarthritis of the right hip. Primary Care Provider: Alexis Hutson DO Ambrosio is a pleasant 77-year-old male who I did a left hip replacement on in January 2022. He is done very well with that. Unfortunately he has been dealing with increasing right hip pain. X-rays and clinical examination have been diagnostic for advanced osteoarthritis of the right hip. After failing conservative treatment, he has elected to proceed with a right total hip arthroplasty.. Allergies Allergy/AdvReac Type Severity Reaction Status Date / Time No Known Allergies Allergy Verified 05/30/22 10:45 Home Medications Medication Instructions Recorded Confirmed Type Wheeled Walker #1 ea 11/30/21 01/23/22 Rx ascorbic acid (vitamin C) 500 mg 500 mg PO QAM 12/20/21 05/30/22 History tablet,extended release (Vitamin C ER) multivitamin 1 tab PO BID 12/20/21 05/30/22 History amlodipine 5 mg tablet 5 mg PO QAM #90 tabs 12/28/21 05/30/22 Rx atorvastatin 40 mg tablet 40 mg PO HS #90 tabs 12/28/21 05/30/22 Rx metoprolol succinate 25 mg 25 mg PO QAM #90 tabs 12/28/21 05/30/22 Rx tablet,extended release 24 hr magnesium 250 mg tablet 250 mg PO QAM 01/15/22 05/30/22 History aspirin 81 mg tablet,delayed 81 mg PO BID 42 days #0 tabs 01/24/22 05/30/22 Rx release oxycodone-acetaminophen 5 mg-325 1 tab PO Q6H PRN pain #30 tabs 01/24/22 05/30/22 Rx mg tablet amoxicillin 500 mg tablet 2,000 mg PO ONCE PRN prophylaxis 03/08/22 05/30/22 Rx #4 tabs Past Med/Surg History Medical History Dyslipidemia History of COVID-19 09/2021, home test, not hosp; "flu symptoms">put on paxlovid, resolved. Hx of coronary artery disease s/p CABG x 4 Hypertension controlled, stable per pt Myocardial Infarction ~10 years ago in [place], s/p CABG x 4 Sleep-disordered breathing snoring and witnessed apneas per , no sleep studies Surgical History History of cardiac cath ~10 years ago, [place]>taken for CABG x4; f/u [facility] History of quadruple bypass Hx of colonoscopy Hx of nasal septoplasty S/P triple vessel bypass ~2008, [place],; f/u [facility] S/P wisdom tooth extraction Status post left hip replacement (~01/2022) 01/2022 Dr Marcus SAB L4-L5 2 attempts. Family History Other Coronary heart disease Denies family history of Ovarian cancer Prostate cancer Myocardial infarction Breast cancer Colorectal cancer Social History Smoking Status: Never smoker Second Hand Exposure: No; Hx Alcohol Use: Yes Alcohol type: wine Alcohol Intake Frequency: 4 or More x per/Week Alcohol Intake Frequency Comment: At dinner Hx Substance Use: No Preferred Language: Czech Communication Ability: Effective Visual Impairment: No Limitations Hearing Ability: Normal Tool Checker Required: No Beliefs That Will Affect Care: None marital status: rigo Current Living Situation: Spouse current occupational status: retired How many Children do You have: 1 Feels Safe at Home: Yes Childhood Exposure to Second-Hand Smoke: No Dental Care, Regularly: Yes Physical Activity Frequency: Daily Seatbelt Use: always Sunscreen Use: Yes Assistive Devices: Cane, Glasses and Walker Review of Systems All systems reviewed & are unremarkable except as noted in HPI & below. Physical Exam On physical examination of the right hip, he has decreased range of motion. He has pain with forced internal and external rotation. All of his pain is in his groin.. Constitutional WD/WN, vitals as above Eyes PERRL, conjunctivae normal, anicteric sclerae ENMT external ear and nose normal, oropharynx normal Neck trachea midline, no thyromegaly Respiratory normal respiratory effort, lungs clear to auscultation Cardiovascular RRR, no murmur, no edema Gastrointestinal (Abdomen) normal bowel sounds, soft, nontender, no hepatosplenomegaly Skin no rashes, warm and dry Psychiatric A+Ox3, euthymic affect Results & Data Results & Data Laboratory Results . Diagnostic Findings X-rays of the right hip and pelvis show advanced osteoarthritis with joint space narrowing, osteophyte formation, and [id number] articulation. PG Care Time/CCT Total # of Minutes Spent Total Time Spent with Patient: Total time spent is greater than 50% in coordination of care (as documented) at patient's floor/unit and/or counseling patient: Coding Level of Care Code None Diagnoses Osteoarthritis of right hip M16.11
[~2022-06-05 10:12] MED LIST changes: +LR 15ML/HR IV SCH; -LR 500ML BOLUS, THEN 15ML/HR IV SCH; +ROPIVACAINE 0.5% 5 MG/ML 30 ML VIAL ONE
[2022-06-05] MEDS ORDERED: PROPOFOL IV EMULSION 10 MG/ML 20 ML VIAL IV ONE (11:22)
[2022-06-05] MEDS ORDERED: LIDOCAINE 2% MPF LOCAL 5 ML VIAL INFIL ONE (11:22)
[2022-06-05] MEDS ORDERED: MIDAZOLAM HCL 1 MG/ML 2ML VIAL ONE (11:22)
[2022-06-05] MEDS ORDERED: ONDANSETRON INJ 2 MG/ML 2 ML VIAL ONE (11:22)
[2022-06-05] MEDS ORDERED: ORTHO JOINT ANESTHETIC ONE (12:12)
[2022-06-05] MEDS ORDERED: ATROPINE SULFATE 0.1 MG/ML 10ML SYR IV PRN (12:42)
[2022-06-05] MEDS ORDERED: HYDROmorphone INJ 1 MG/ML SYRINGE IV PRN (12:42)
[2022-06-05] MEDS ORDERED: ONDANSETRON INJ 2 MG/ML 2 ML VIAL IV PRN ×2 (12:42→15:27)
[2022-06-05] MEDS ORDERED: ePHEDrine sulfate 50 MG/ML AMP IV PRN (12:42)
[2022-06-05] MEDS ORDERED: KETOROLAC TROMETHAMINE 15 MG/ML VIAL IV PRN (12:44)
[2022-06-05] MEDS ORDERED: PHENYLEPHRINE 100MCG/ML 5ML SYR ONE ×2 (13:22→14:11)
[2022-06-05] MEDS ORDERED: ePHEDrine sulfate 50 MG/ML AMP ONE (13:22)
[2022-06-05] MEDS ORDERED: SODIUM CHLORIDE 0.9% INJ 10 ML VIAL ONE (13:23)
[2022-06-05] MEDS ORDERED: PHENYLEPHRINE HCL 10 MG/ML VIAL ONE (14:11)
--- NOTE | 2022-06-05 14:19 | Operative Report ---
PG Post Operative Report Pre & Post Diagnosis Operation Date: 06/05/22 12:50 Pre-Op Diagnosis: Degenerative Joint Disease Right Hip Post-Op Diagnosis: Degenerative Joint Disease Right Hip I identified the patient and participated in the time-out.: Yes Procedure Operation Date: 06/05/22 12:50 Actual Procedures p Right Anterior Total Hip Arthroplasty(Right) - Lei Marcus DO Surgeon Lei Marcus DO Side Piece Coverer Lei Triplett PA-C Estimated Blood Loss 200 Findings Consistent with Post-Op Diagnosis Specimens Right femoral head Description of Procedure Implants used I used a [employer]immer[employer]omet total hip arthroplasty system with a size 4 standard offset Avenir Complete stem, a 54 mm G7 cup with a 25mm screw, an E1 polyet hylene liner, a 40 mm ceramic head with a +3.5 neck. Ambrosio arrived at the hospital for the above procedure. He was seen in the preoperative holding area and the operative extremity was identified and signed. He was given a spinal anesthetic, a preoperative antibiotic, and TXA. He was then taken back to the operating room and laid on the table in the supine position. He was given basic sedation. The operative leg was secured to a Puristst leg positioner. The hip was then prepped and draped in sterile fashion. A timeout was done and the patient and the operative extremity was properly identified. An anterior approach was used. Dissection was taken down through the fascia and the tensor muscle belly was retracted laterally and the rectus was retracted medially. The circumflex vessels were identified and ligated. The capsule was then incised and tagged for later repair. The femoral neck was then cut and the femoral head was removed. The acetabulum was exposed. Time was spent doing a complete circumferential labral release. Sequential reaming of the acetabulum up to a size 53 reamer was done. Final reamings were done under fluoroscopy to ensure appropriate version. A Biomet 54 mm G7 cup was then impacted into place. A single 25 mm screw was placed. The E1 polyethylene liner was then snapped into place. Surrounding soft tissues were then injected with 100 cc of an orthopedic pain control cocktail. The proximal femur was then exposed. Sequential broaching up to a size 4 broach was done. Off that broach a size 40 head with a +3.5 neck was trialed. The hip was reduced and fluoroscopic images showed anatomic alignment of the implants in acceptable length. The broach was removed. The final size 4 standard offset Avenir Complete stem was then impacted into place. A ceramic 40 head with a +3.5 neck was then impacted onto the stem and the hip was reduced. Final fluoroscopic images showed anatomic alignment of the hip. The capsule was then closed with #1 Vicryl suture. A dilute betadyne lavage was then done for 3 minutes. The joint was then irrigated with normal saline solution. The fascia was closed with #1 PDS suture. Skin was closed with 2-0 Vicryl, yaquelin, and a Silverlon dressing. He was then transferred to a hospital bed and taken to the post anesthesia care unit in stable condition. He tolerated the procedure well. Lei Triplett PA-C, was present for the entire procedure. He was critical for patient positioning, prepping, draping, retraction exposure, wound closure and application of sterile dressing. I attest to the content of the Intraoperative Record and any orders documented therein. Any exceptions are noted below.
--- NOTE | 2022-06-05 14:26 | Fluoroscopy Report ---
FL hip RT 1V CLINICAL HISTORY: Right anterior total hip arthroplasty TECHNIQUE: 1 views were obtained with the C-arm in the OR with the above procedure. Total fluoroscopy time was 11.4 seconds. Radiation dose was 1.97 mGy. Comparison: Comparison is made to hip radiographs 03/08/2022 FINDINGS/IMPRESSION: Intraoperative images were obtained of right hip arthroplasty Please correlate with intraoperative fluoroscopy and operative report. ACT 112: Negative or not required by law. Electronically signed by: Ney Gresham M.D. 06/05/2022 2:24 PM
--- NOTE | 2022-06-05 15:17 | Anesthesiology Progress Note ---
Date of Service June 05, 2022 Anesthesia Post Procedure Vital Signs Vital Signs: Temp Pulse Resp BP Pulse Ox O2 Del Method O2 Flow Rate 06/05/22 15:10 36.4 C L 71 17 109/61 95 Nasal Cannula 2 06/05/22 15:00 70 17 116/60 95 Oxymask 5 06/05/22 14:50 69 18 119/68 94 Oxymask 5 06/05/22 14:44 36.4 C L 70 18 122/64 94 Oxymask 5 06/05/22 10:43 37 C 64 20 120/61 98 Room Air Pain Intensity Right Hip: Pain Intensity: 5 Transfer of Care Handoff Completed per policy Notes Mental Status: alert / awake / arousable and participated in evaluation Patient Amnestic to Procedure: Yes Nausea / Vomiting: adequately controlled Pain: adequately controlled Airway Patency, RR, SpO2: stable & adequate BP & HR: stable & adequate Hydration State: stable & adequate Anesthetic Complications: no major complications apparent and Pt Satisfied with anesthetic care
[2022-06-05] MEDS ORDERED: oxyCODONE HCL IR 5 MG TAB (IMMEDIATE RELEASE) PO PRN (15:27)
[2022-06-05] MEDS ORDERED: MAGNESIUM HYDROXIDE SUSP 30 ML UDC PO PRN (15:27)
[2022-06-05] MEDS ORDERED: NALOXONE HCL 0.4 MG/1 ML VIAL/CARP IV PRN (15:27)
[2022-06-05] MEDS ORDERED: METOCLOPRAMIDE HCL INJ 5 MG/ML 2 ML VIAL IV PRN (15:27)
[2022-06-05] MEDS ORDERED: HYDROmorphone INJ 0.5 MG/0.5 ML SYR IV PRN (15:27)
[2022-06-05] MEDS ORDERED: bisacodyL 10 MG SUPP PR PRN (15:27)
--- NOTE | 2022-06-05 15:37 | XRay Report ---
XR hip 1V RT w pelvis CLINICAL HISTORY: IN PACU - Post Surgical TECHNIQUE: 2 views of the right hip and single frontal view of the pelvis were obtained. Comparison: Comparison is made to left hip radiograph 01/23/2022 FINDINGS: Patient is status post total hip arthroplasty with expected postsurgical changes including soft tissu e swelling and subcutaneous emphysema. IMPRESSION: Expected postoperative appearance status post placement of total hip arthroplasty. ACT 112: Negative or not required by law. Electronically signed by: Ney Gresham M.D. 06/05/2022 3:36 PM
[2022-06-05] MEDS: SODIUM CHLORIDE 0.9% 1000ML 1,000 ML IV SCH (16:08)
[2022-06-05] MEDS: ACETAMINOPHEN 500 MG TAB PO SCH (20:46)
[2022-06-05] MEDS: ASPIRIN 81 MG ECTAB PO SCH (20:46)
[2022-06-05] MEDS: DOCUSATE SODIUM 100 MG CAP PO SCH (20:46)
[2022-06-05] MEDS: ceFAZolin 2000MG 2,000 MG/15 ML SYR IV SCH (20:46)
[2022-06-05] MEDS ORDERED: SENNA 8.6 MG TAB PO SCH (21:00)
[2022-06-05] MEDS ORDERED: ATORVASTATIN 40 MG TAB PO SCH (21:00)
[2022-06-06] MEDS: SODIUM CHLORIDE 0.9% 1000ML 1,000 ML IV SCH (01:15)
[2022-06-06] MEDS: ceFAZolin 2000MG 2,000 MG/15 ML SYR IV SCH (04:37)
[2022-06-06] MEDS: ACETAMINOPHEN 500 MG TAB PO SCH (05:31)
[2022-06-06] MEDS ORDERED: dexAMETHasone 4 MG TAB PO SCH (08:00)
[2022-06-06] MEDS: DOCUSATE SODIUM 100 MG CAP PO SCH (08:35)
[2022-06-06] MEDS: ASPIRIN 81 MG ECTAB PO SCH (08:36)
[2022-06-06] MEDS ORDERED: METOPROLOL SUCC 25MG EXT REL TAB PO SCH (09:00)
[2022-06-06] MEDS ORDERED: amLODIPine BESYLATE 5 MG TAB PO SCH (09:00)
[2022-06-06] MEDS ORDERED: MULTIVITAMIN TAB PO SCH (09:00)
[2022-06-06] MEDS ORDERED: MAGNESIUM OXIDE 400 MG TAB PO SCH (09:00)
--- NOTE | 2022-06-06 11:15 | Orthopedic Progress Note ---
Date of Service June 06, 2022 Assessment & Plan (1) Status post right hip replacement: Overall he is doing very well. He is not having much pain in the right hip. He will be seen by physical therapy today for ambulation and range of motion exercises. He can be discharged home later today. He is on aspirin for DVT prophylaxis. He will follow-up with orthopedics in 2 weeks. Hung Valente was seen and examined at bedside this morning. Overall he is doing very well. Is not having much pain in the right hip. He was walking to the bathroom. He has no complaints.. Review of Systems All systems reviewed & are unremarkable except as noted in HPI & below. Physical Exam On physical examination of the right hip, the dressing is clean and dry. His leg is out full extension. He is neurovascular intact.. Results & Data Results & Data Laboratory Results . Diagnostic Findings Postoperative x-rays of the right hip show the prosthesis to be in anatomic alignment without any evidence of fracture, desiccation, or loosening. PG Care Time/CCT Total # of Minutes Spent Total Time Spent with Patient: Total time spent is greater than 50% in coordination of care (as documented) at patient's floor/unit and/or counseling patient: Coding Level of Care Code 30670 Post Operative Follow-Up Diagnoses Status post right hip replacement Z96.641
--- NOTE | 2022-06-06 11:16 | Discharge Summary ---
Date of Service June 06, 2022 Admission HPI (Per Admitting) Ambrosio is a pleasant 77-year-old male who I did a left hip replacement on in January 2022. He is done very well with that. Unfortunately he has been dealing with increasing right hip pain. X-rays and clinical examination have been diagnostic for advanced osteoarthritis of the right hip. After failing conservative treatment, he has elected to proceed with a right total hip arthroplasty.. Admission Exam (Per Admitting) On physical examination of the right hip, he has decreased range of motion. He has pain with forced internal and external rotation. All of his pain is in his groin.. Principal Diagnosis Same as "Discharge Diagnosis" noted below under Discharge Instructions. Discharge Exam On physical examination of the right hip, the dressing is clean and dry. His leg is out full extension. He is neurovascular intact.. Discharge Data Procedures Performed Operation Date: 06/05/22 12:50 Actual Procedures p Right Anterior Total Hip Arthroplasty(Right) - Lei Marcus DO Ordered Studies 06/05/22 [place] hip RT 1V Routine Hospital Course (1) Status post right hip replacement: On June 05, 2022 Ambrosio arrived at [facility] and underwent a right hip replaced without complication. He had a spinal anesthetic. Postoperatively he was started on aspirin for DVT prophylaxis and transferred to the general orthopedic floors. His hospital course was uneventful. On postop day #1, his vital signs were stable and his pain was well controlled. He was able to participate well with physical therapy doing ambulation and range of motion exercises. He was then discharged home. He will follow-up with orthopedics in 2 weeks. PG Care Time/CCT Total # of Minutes Spent Total Time Spent with Patient: Total time spent is greater than 50% in coordination of care (as documented) at patient's floor/unit and/or counseling patient: Discharge Plan Discharge Items Patient Disposition: Home - Home Health Services Reason For Visit: DJD Right Hip Discharge Diagnosis: Right hip replacement Activity: Per Instructions section Non-emergency contact: Surgeon Call non-emergency contact if: your wound has increased redness and your wound has increased drainage Follow-up/Referrals: Alexis Hutson DO [Primary Care Provider] - Diet: Regular Addtl Attending Provider Instructions: Activity and Therapy Recommendations: * If you are using [facility] then therapy will be provided at your home until they feel you have accomplished all of your goals. * If you are using [facility] then Physical Therapy will be provided until they feel you are ready to start Outpatient Physical Therapy. * If you are not using home therapy then Outpatient Physical Therapy should start about 3-5 days from your day of surgery. Therapy will last about 6-10 weeks * You were shown a series of exercises in the hospital. Do these exercises three times each day including the exercises you were shown in physical therapy. * Get up and walk several times each day.~ For the first four weeks, try not to stand or walk for more than one hour at a time. If you do stand or walk for more than one hour, you will not hurt anything, but your leg will likely swell.~~ * As you feel comfortable, you may change from the walker or crutches to a cane and~then to independent walking. Medications: * Narcotic You will likely be sent home from the hospital with a prescription for the narcotic pain medication that worked best throughout your stay. * Aspirin Most patients will be required to take Aspirin 81mg twice a day for 6 weeks after surgery. This is obtained [id number] and a prescription is not necessary. * Other medications may be prescribed for specific circumstances. If you have any questions, please call the office at . * Resume previous home medications unless otherwise instructed TEDs/Elastic Stockings: The white elastic stockings help limit swelling and prevent blood clots from forming in your legs. The more you wear them, the more they work. Wear them for six weeks. Dressing Care: Leave the Silverlon dressing in place for 7 days. After 7 days you may remove the dressing. If the incision is not draining then you may leave the yaquelin open to air. If there is a little bit of drainage or if the yaquelin are getting stuck on your clothing then cover the incision with a dry dressing. The yaquelin will be removed at your 2 week follow-up appointment. Showering: You may shower with the Silverlon dressing in place. Do not let the shower spray hit the dressing directly. Pat the Silverlon dressing dry. If the dressing becomes wet underneath, then simply remove the dressing. Keep the incision dry until you are 7 days out from the day of surgery. After 7 days you may remove the Silverlon dressing and shower with the yaquelin exposed. Let soapy water run over the yaquelin and pat them dry. Do not scrub or soak the incision. Things To Watch For: * Drainage from the incision site that occurs more than one week after your surgery. * Increased redness at the incision site. * Fever above 102 degrees Fahrenheit. * Unusual chest pain or shortness of breath. * Call [facility] at with any of the above problems Follow-Up Visit: Follow-up with Dr. Marcus's PA (Lei Triplett) 2-3 weeks after your day of surgery. He will remove your yaquelin and answer any questions. If you have any additional questions or concerns, Dr Marcus is usually in the office at the same time and will be available An appointment was probably scheduled when you signed-up for surgery in the office. If you have any questions call Office Instructions: More detailed instructions as well as Frequently Asked Questions were provided in a folder by our office when you signed-up for surgery. Please review these instructions when you get home. If you have any further questions or concerns, please feel free to call the office at [phone] Pending Studies at Discharge: No Stand-Alone Forms: My [facility] Medications and DC Order Prescriptions: Continued (DME) Wheelap Walker Misc See Rx Instructions .MEDSUPPLY Qty: 1 0RF Rx Instructions: As directed amlodipine 5 mg tablet 5 mg PO QAM Qty: 90 3RF atorvastatin 40 mg tablet 40 mg PO HS Qty: 90 3RF metoprolol succinate 25 mg tablet extended release 24 hr 25 mg PO QAM Qty: 90 3RF amoxicillin 500 mg tablet 2,000 mg PO ONCE PRN (Reason: prophylaxis) Qty: 4 3RF Rx Instructions: ONE HOUR PRIOR TO DENTAL PROCEDURE magnesium 250 mg Tablet 250 mg PO QAM aspirin 81 mg tablet,delayed release (DR/EC) 81 mg PO BID 42 Days Qty: 0 0RF multivitamin Tablet 1 tab PO BID ascorbic acid (vitamin C) [Vitamin C] 500 mg Tablet Extended Release 500 mg PO QAM oxycodone-acetaminophen 5-325 mg tablet 1 tab PO Q6H PRN (Reason: pain) Qty: 30 0RF Krames/Other Patient Handouts: Understanding Hip Replacement Admission Data Admit Date/Time: 06/05/22 14:46 Attending Provider: Lei Marcus Admit Provider: Lei Marcus Primary Care Provider: Alexis Hutson Other Interventions: Discharge Summary Assessment (RN) Last Done: 06/06/22 10:40
== END 2022-06-06 11:54 | disposition home health service (06) ==
LOC: 3W 10:12 → ASU 10:12